=== PATIENT | male | born 1980 | race Caucasian/White ===

== ENCOUNTER 2023-07-22 13:58 | Emergency (ER) | payer OTHER, SELFPAY ==
[2023-07-22 14:00] VITALS: BP 138/92; PULSE 110; RESP 14; TEMP 37.2; O2SAT 100
[2023-07-22] MEDS: NALOXONE HCL INJ 2 MG/2 ML AMP 4 MG (17:16)
== END 2023-07-22 14:38 | disposition left against medical advice (07) ==
LOC: ANHED 14:22
PROVIDERS: Emergency Provider Family Medicine; PCP Internal Medicine
DX: T40.411A Poisoning by fentanyl or fentanyl analogs, accidental (unintentional), initial encounter (principal)
CPT/HCPCS: 99199; J2310

== ENCOUNTER 2025-02-17 10:13 | Emergency (ER) | payer OTHER, SELFPAY ==
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
[2025-02-17 10:19] VITALS: BP 116/73; PULSE 93; RESP 16; TEMP 36.8; O2SAT 98
[2025-02-17 10:53] VITALS: BP 124/87; PULSE 100; RESP 16; O2SAT 95
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
[2025-02-17 11:59] VITALS: BP 110/74; PULSE 82; RESP 13; O2SAT 96
[2025-02-17 12:00] VITALS: BP 113/71; PULSE 81; RESP 13; O2SAT 95
[2025-02-17 12:16] VITALS: BP 114/79; PULSE 85; RESP 19; O2SAT 97
[2025-02-17] MEDS: HYDROcodone/acetaminophen (*CRX) 5-325 MG TABLET 2 TAB PO (12:48)
== END 2025-02-17 12:57 | disposition home or self-care (01) ==
PROVIDERS: Emergency Provider Emergency Medicine
DX: S00.432A Contusion of left ear, initial encounter (principal); S22.000A Wedge compression fracture of unspecified thoracic vertebra, initial encounter for closed fracture; S20.219A Contusion of unspecified front wall of thorax, initial encounter; Y04.2XXA Assault by strike against or bumped into by another person, initial encounter
CPT/HCPCS: 70450; 71250; 72125; 99284; A9270